=== PATIENT | male | born 1945 | race Caucasian/White ===

== ENCOUNTER 2023-12-06 05:25 | Inpatient (IN) | payer BC ==
[~2023-12-06] VITALS: Ht 182.9 cm; Wt 99.8 kg
[2023-12-06] MEDS ORDERED: GABAPENTIN 300 MG CAPSULE ONE (05:39)
[2023-12-06] MEDS ORDERED: oxyCODONE HCL 10 MG TAB.ER.12H PO ONE (05:39)
[2023-12-06] MEDS ORDERED: ACETAMINOPHEN 500 MG TABLET PO ONE (06:00)
[2023-12-06] MEDS ORDERED: CEFAZOLIN SOD 2 GM in D5W 50 ML IV ONE (06:00)
[2023-12-06] MEDS: ACETAMINOPHEN 500 MG TABLET ONE (06:15)
[2023-12-06] MEDS: GABAPENTIN 300 MG CAPSULE PO ONE (06:15)
[2023-12-06] MEDS: oxyCODONE HCL 10 MG TAB.ER.12H PO ONE (07:00)
[2023-12-06] MEDS ORDERED: MEPERIDINE HCL/PF 25 MG/ML DISP.SYRIN IVP PRN (07:45)
[2023-12-06] MEDS ORDERED: METOCLOPRAMIDE HCL 10 MG/2 ML VIAL IVP PRN (07:45)
[2023-12-06] MEDS ORDERED: LR 1,000 ML IV SCH (07:45)
[2023-12-06] MEDS ORDERED: HYDROmorphone 1 MG/ML INJ. CARTRIDGE IVP PRN ×2 (07:45)
[2023-12-06] MEDS ORDERED: hydrALAZINE HCL 20 MG/ML VIAL IVP PRN (07:45)
[2023-12-06] MEDS ORDERED: BUPIVACAINE /PF 0.25% 30 ML VIAL INJ ONE (09:37)
[2023-12-06 09:45] VITALS: BP_SYST 142; PULSE 69; RESP 18; TEMP 97.9; O2SAT 96
[2023-12-06] MEDS ORDERED: TAMSULOSIN HCL 0.4 MG CAP PO SCH (10:00)
[2023-12-06] MEDS ORDERED: CEFEPIME 2 GM in D5W 100 ML IV ONE (12:00)
[2023-12-06] MEDS: HYDROmorphone 1 MG/ML INJ. CARTRIDGE ONE ×2 (12:30→12:45)
[2023-12-07] MEDS ORDERED: CEFEPIME 2 GM in D5W 100 ML IV SCH (12:00)
== END 2023-12-06 15:45 | disposition home or self-care (01) | DRG 470 ==
LOC: SMU 05:25 → EDSTATUS 07:30
PROVIDERS: ADMIT Orthopaedic Surgery Sports Medicine; ATTEND Orthopaedic Surgery Sports Medicine
PROC: 0SRC0J9 Replacement of Right Knee Joint with Synthetic Substitute, Cemented, Open Approach (ICD-10-PCS; principal; 2023-12-06 07:00)
DX: M17.11 Unilateral primary osteoarthritis, right knee (principal)
CPT/HCPCS: 73560; 82948; 87081; 88305; 88311; 97110-GP; 97116-GP; 97530-GP; J0690; J0692; J1170; J2405; J3010; J3370; J3465; J3490; J7060; J7120